=== PATIENT | female | born 1965 ===

== ENCOUNTER 2017-03-06 11:39 | Day surgery (SDC) | payer OTHER ==
--- NOTE | ~2017-03-06 | EGD ---
EGD REPORT [facility] [address] [place] [address] NAME: LINDA CORRIGAN : [birth year] STATUS : REG [facility] [place] PAT#: [id number] AGE: 52 ADM/REG DATE : 03/06/17 MR#: [id number] REPORT SERV DATE: 03/06/17 DICTATED BY: SUKUMAR RENNER DATE: 03/06/17 REPORT STATUS : Draft TRANSCRIBED BY: [employer] DATE: 03/06/17 [facility] Center Patient Name: Linda Corrigan Date of : 1965 Attending MD: SUKUMAR RENNER MD Procedure Date No Time: 03/06/2017 Procedure: Colonoscopy Indications: Screening for colorectal malignant neoplasm Referring MD: LEE HERNANDEZ Medicines: Monitored Anesthesia Care Complications: No immediate complications. Procedure: Pre-Anesthesia Assessment: - ASA Grade Assessment: II - A patient with mild systemic disease. After I obtained informed consent, the scope was passed under direct vision. Throughout the procedure, the patient's blood pressure, pulse, and oxygen saturations were monitored continuously. The CF [id number] was introduced through the anus and advanced to the cecum, identified by appendiceal orifice and ileocecal valve. The colonoscopy was performed without difficulty. The patient tolerated the procedure well. The quality of the bowel preparation was adequate. Findings: The digital rectal exam was normal. Pertinent negatives include no palpable rectal lesions. A sessile polyp was found in the ascending colon. The polyp was 11 mm in size. The polyp was removed with a cold snare. Resection and retrieval were complete. A sessile polyp was found in the ascending colon. The polyp was 12 mm in size. The polyp was removed with a hot snare. Resection and retrieval were complete. Two sessile polyps were found in the cecum. The polyps were 5 to 10 mm in size. These polyps were removed with a cold snare. Resection and retrieval were complete. Two sessile polyps were found in the transverse colon. The polyps were 9 to 11 mm in size. These polyps were removed with a cold snare. Resection and retrieval were complete. A sessile polyp was found in the sigmoid colon. The polyp was 10 mm in size. The polyp was removed with a cold snare. Resection and retrieval were complete. Hemorrhoids were found during retroflexion and were mild. Impression: - One 11 mm polyp in the ascending colon. Resected and EGD REPORT [place] [id number] [facility] [place]. [address] NAME: LINDA CORRIGAN : [birth year] STATUS : REG [facility] [place] PAT#: [id number] AGE: 52 ADM/REG DATE : 03/06/17 MR#: [id number] REPORT SERV DATE: 03/06/17 DICTATED BY: SUKUMAR RENNER DATE: 03/06/17 REPORT STATUS : Draft TRANSCRIBED BY: [facility] DATE: 03/06/17 retrieved. - One 12 mm polyp in the ascending colon. Resected and retrieved. - Two 5 to 10 mm polyps in the cecum. Resected and retrieved. - Two 9 to 11 mm polyps in the transverse colon. Resected and retrieved. - One 10 mm polyp in the sigmoid colon. Resected and retrieved. - Hemorrhoids. Recommendation: - Patient has a contact number available for emergencies. The signs and symptoms of potential delayed complications were discussed with the patient. Return to normal activities tomorrow. Written discharge instructions were provided to the patient. - Regular diet. - Continue present medications. - Await pathology results. - Repeat colonoscopy for surveillance based on pathology results. - Return to GI clinic PRN. Procedure Code(s): --- Professional --- 66514, Colonoscopy, flexible, proximal to splenic flexure; with removal of tumor(s), polyp(s), or other lesion(s) by snare technique Diagnosis Code(s): --- Professional --- D12.5, Benign neoplasm of sigmoid colon D12.3, Benign neoplasm of transverse colon D12.0, Benign neoplasm of cecum D12.2, Benign neoplasm of ascending colon K64.9, Unspecified hemorrhoids Z12.11, Encounter for screening for malignant neoplasm of colon CPT copyright 2013 [employer]. All rights reserved. The codes documented in this report are preliminary and upon can striper review may be revised to meet current compliance requirements. SUKUMAR RENNER MD 03/06/2017 3:19 PM This report has been signed electronically. EGD REPORT [facility] [address] [address] NAME: LINDA CORRIGAN : [birth year] STATUS : REG [facility] [place] PAT#: [id number] AGE: 52 ADM/REG DATE : 03/06/17 MR#: [id number] REPORT SERV DATE: 03/06/17 DICTATED BY: SUKUMAR RENNER DATE: 03/06/17 REPORT STATUS : Draft TRANSCRIBED BY: [employer] [facility] DATE: 03/06/17 Number of Addenda: 0 Note Initiated On: 03/06/2017 2:32 PM Scope Withdrawal Time 0 hours 28 minutes 21 seconds [address] [id number]
[~2017-03-06 11:39] MED LIST: B121000P IM; BUSPAR30 MG PO; PREMPRO PO; VENTOLIN HFA INH; [UNRECOGNIZED DRUG - REMARK] PO
== END 2017-03-06 23:59 | disposition home or self-care (01) ==
LOC: DMU 11:39
PROVIDERS: Internal Medicine Gastroenterology
PROC: 0DBN8ZZ Excision of Sigmoid Colon, Via Natural or Artificial Opening Endoscopic (ICD-10-PCS; 2017-03-06)
PROC: 0DBH8ZZ Excision of Cecum, Via Natural or Artificial Opening Endoscopic (ICD-10-PCS; 2017-03-06)
PROC: 0DBK8ZZ Excision of Ascending Colon, Via Natural or Artificial Opening Endoscopic (ICD-10-PCS; principal; 2017-03-06 13:30)
PROC: 0DBL8ZZ Excision of Transverse Colon, Via Natural or Artificial Opening Endoscopic (ICD-10-PCS; 2017-03-06 13:30)
DX: Z12.11 Encounter for screening for malignant neoplasm of colon (principal); D12.0 Benign neoplasm of cecum; D12.2 Benign neoplasm of ascending colon; K63.5 Polyp of colon; K64.9 Unspecified hemorrhoids; J45.909 Unspecified asthma, uncomplicated; M19.90 Unspecified osteoarthritis, unspecified site; F41.9 Anxiety disorder, unspecified; F32.9 Major depressive disorder, single episode, unspecified; K21.9 Gastro-esophageal reflux disease without esophagitis; Z87.891 Personal history of nicotine dependence; Z98.51 Tubal ligation status; Z98.890 Other specified postprocedural states
CPT/HCPCS: 88305